=== PATIENT | female | born 1950 | race Caucasian/White ===

== ENCOUNTER → 2024-03-30 06:39 | Day surgery (SDC) | payer OTHER, SELFPAY | LOC: GI 06:39 | PROVIDERS: ATTENDING PHYSICIAN Internal Medicine Gastroenterology | DX: Z12.11 Encounter for screening for malignant neoplasm of colon (principal); D12.3 Benign neoplasm of transverse colon; D12.5 Benign neoplasm of sigmoid colon; K63.5 Polyp of colon; K57.30 Diverticulosis of large intestine without perforation or abscess without bleeding; Z86.010 Personal history of colon polyps | CPT/HCPCS: 45385; 45381; 88305 ==

== ENCOUNTER → 2024-10-25 06:20 | Day surgery (SDC) | payer OTHER, SELFPAY | LOC: GI 06:20 | PROVIDERS: ATTENDING PHYSICIAN Internal Medicine Gastroenterology; FAMILY PHYSICIAN Family Medicine | DX: Z12.11 Encounter for screening for malignant neoplasm of colon (principal); Z86.0101 Personal history of adenomatous and serrated colon polyps; K57.30 Diverticulosis of large intestine without perforation or abscess without bleeding; D12.0 Benign neoplasm of cecum; D12.2 Benign neoplasm of ascending colon | CPT/HCPCS: 45385; 45380; 88305 ==

== ENCOUNTER → 2025-01-12 14:35 | Outpatient (REF) | payer OTHER, SELFPAY | LOC: WDC 14:35 | PROVIDERS: ATTENDING PHYSICIAN Obstetrics & Gynecology; FAMILY PHYSICIAN Family Medicine | DX: Z78.0 Asymptomatic menopausal state (principal); Z12.31 Encounter for screening mammogram for malignant neoplasm of breast | CPT/HCPCS: 77063; 77067; 77080 ==

== ENCOUNTER → 2025-08-11 09:48 | Outpatient (REF) | payer OTHER, SELFPAY | LOC: WDC 09:48 | PROVIDERS: ATTENDING PHYSICIAN Family Medicine | DX: N63.11 Unspecified lump in the right breast, upper outer quadrant (principal) | CPT/HCPCS: 76642; 77061; 77065 ==

== ENCOUNTER → 2025-08-17 07:46 | Outpatient (REF) | payer OTHER, SELFPAY ==
--- NOTE | 2025-08-17 15:29 | OID.BR.INTR ---
JES[facility] Breast Navigator - Initial
- -
Date of Contact: 08/17/25
Met with patient. Patient given written information on navigator service available at [facility]. Will follow up as needed per protocol.
== END ==
LOC: WDC 07:46
PROVIDERS: ATTENDING PHYSICIAN Family Medicine
DX: N63.31 Unspecified lump in axillary tail of the right breast (principal)
CPT/HCPCS: 19083; 88305; A4648

== ENCOUNTER → 2025-09-07 12:14 | Outpatient (REF) | payer OTHER, SELFPAY ==
[2025-09-07 12:18] LABS: Glucose 94 mg/dl (70-99)
== END ==
LOC: PET 12:14
PROVIDERS: ATTENDING PHYSICIAN Family Medicine
DX: C56.9 Malignant neoplasm of unspecified ovary (principal); R73.03 Prediabetes
CPT/HCPCS: 36415; 82947

== ENCOUNTER → 2025-09-21 07:11 | Outpatient (REF) | payer OTHER, SELFPAY ==
[2025-09-21] VITALS (7 sets, daily range): BP systolic 62–159; BP diastolic 61–89
[2025-09-21 07:40] LABS: Hematocrit 45.0 % (37.0-47.0); Hemoglobin 14.4 g/dL (12.0-16.0); Mean Corp Hgb Conc. 32.0 g/dL (33.0-37.0); Mean Corpuscular Volume 91.1 fL (81.0-99.0); Nucleated Red Blood Cells % 0 %; Platelet Count 316 10^3/uL (130-400); Red Cell Dist. Width 13.1 % (11.5-14.5)
[2025-09-21 07:54] LABS: INR 1.01; PT 13.8 Sec (11.4-14.6)
== END ==
LOC: RADI 07:11
PROVIDERS: ATTENDING PHYSICIAN Internal Medicine Hematology & Oncology; FAMILY PHYSICIAN Family Medicine
DX: C78.6 Secondary malignant neoplasm of retroperitoneum and peritoneum (principal); C56.9 Malignant neoplasm of unspecified ovary
CPT/HCPCS: 36415; 49180; 76705; 77012; 85025; 85610; 88305; 88333; 88341; 88360; 99152; 99153

== ENCOUNTER → 2025-10-27 08:22 | Outpatient (REF) | payer OTHER, SELFPAY ==
[2025-10-27] VITALS (11 sets, daily range): BP systolic 125–149; BP diastolic 63–73
[2025-10-27] MEDS: VANCOCIN 200 IV (09:25)
== END ==
LOC: RADI 08:22
PROVIDERS: ATTENDING PHYSICIAN Internal Medicine Hematology & Oncology; FAMILY PHYSICIAN Family Medicine
DX: C56.9 Malignant neoplasm of unspecified ovary (principal)
CPT/HCPCS: 36561; 76937; 77001; 99152; 99153; C1788